=== PATIENT | female | born 1960 | race Caucasian/White ===

== ENCOUNTER 2020-11-29 14:18 | Emergency (ER) | payer OTHER ==
[2020-11-29 14:31] VITALS: BP 137/71; PULSE 68; RESP 18; TEMP 97.7
--- NOTE | 2020-11-29 15:07 | ED ---
Recheck HPI - General Chief Complaint: Recheck/Abnormal Lab/Rx Stated Complaint: Invasive Candidiasis Time Seen by Provider: 11/29/20 14:45 Source: patient, family, RN notes reviewed Mode of arrival: wheelchair Limitations: no limitations - History of Present Illness Initial Comments: This a 60-year-old female presents emergency Department chief complaint of candidiasis issues. Patient states that she had issues like this 6 months ago which was placed on oral medications. 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 Patient's seen at urgent care is advised to be seen by infectious disease she did not call and schedule plain she presented emergency department. Patient does have underlying ALS on chronic submental oxygen. Patient is not a diabetic. She states she has esophageal and oral candidiasis along with some groin skin. Patient offers no complaints - Related Data Home Medications Medication Instructions Recorded Confirmed Atorvastatin Calcium [Lipitor] 10 mg PO DAILY 05/18/20 05/18/20 LORazepam [Ativan] 1 mg SL Q4H PRN 05/18/20 05/18/20 MORPHINE ORAL JUDE CONC 20mg/mL 15 - 20 mg PO DIRECTED PRN 05/18/20 05/18/20 [Roxanol Oral Soln Conc 20MG/ML] Mag Hydrox/Aluminum Hyd/Simeth 5 - 10 ml PO BID PRN 05/18/20 05/18/20 [Mylanta Maximum Strength Liq] Melatonin 5 mg PO HS PRN 05/18/20 05/18/20 Sennosides/Docusate Sodium [Senna 2 tab PO DAILY PRN MDD 4 tabs daily 05/18/20 05/18/20 Plus 8.6-50 mg Tablet] guaiFENesin SYRUP 100MG/5ML 300 - 600 mg PO TID PRN 05/18/20 05/18/20 [Robitussin] Previous Rx's Medication Instructions Recorded Clopidogrel [Plavix] 75 mg PO DAILY #30 tab 11/27/19 Acetaminophen Oral Susp (Peds) 1,000 mg PO Q6HR PRN bottle 05/20/20 [Tylenol Oral Susp For Peds (Grape)] Ascorbic Acid [Vitamin C] 500 mg PO DAILY 30 Days #30 tab 05/20/20 Cholecalciferol [Vitamin D3 (25 1,000 unit PO DAILY 30 Days #30 tab 05/20/20 Mcg = 1000 Iu)] Famotidine [Pepcid] 20 mg PO BID 30 Days #60 tab 05/20/20 Zinc Sulfate [Orazinc] 220 mg PO DAILY 30 Days #30 cap 05/20/20 dexAMETHasone ORAL [Hexadrol] 6 mg PO DAILY 7 Days #7 tab 05/20/20 Fluconazole Oral Susp [Diflucan 200 mg PO DAILY #105 ml 11/29/20 Oral Susp] Nystatin 100,000Unit/gm Cream 1 applic TOPICAL BID #30 gram 11/29/20 [Mycostatin Cream] Allergies Allergy/AdvReac Type Severity Reaction Status Date / Time aspirin Allergy Unknown Verified 11/29/20 14:32 Review of Systems ROS Statement: Those systems with pertinent positive or pertinent negative responses have been documented in the HPI. ROS Other: All systems not noted in ROS Statement are negative. Past Medical History Past Medical History: No Reported History History of Any Multi-Drug Resistant Organisms: None Reported Past Surgical History: Bowel Resection, Section, Hernia Repair, Tubal Ligation Additional Past Surgical History / Comment(s): patient does not speak, uses hands and notes Past Anesthesia/Blood Transfusion Reactions: No Reported Reaction Past Psychological History: No Psychological Hx Reported Smoking Status: Former smoker Past Alcohol Use History: None Reported Past Drug Use History: None Reported General Exam Limitations: no limitations General appearance: alert, in no apparent distress Head exam: Present: atraumatic, normocephalic, normal inspection Eye exam: Present: normal appearance, PERRL, EOMI. Absent: scleral icterus, conjunctival injection, periorbital swelling ENT exam: Present: mucous membranes moist, TM's normal bilaterally, normal external ear exam. Absent: normal oropharynx (Diffuse coating noted on the tongue) Neck exam: Present: normal inspection, full ROM. Absent: tenderness, meningismus, lymphadenopathy Respiratory exam: Present: normal lung sounds bilaterally. Absent: respiratory distress, wheezes, rales, rhonchi, stridor Cardiovascular Exam: Present: regular rate, normal rhythm, normal heart sounds. Absent: systolic murmur, diastolic murmur, rubs, gallop, clicks Skin exam: Present: rash Course Vital Signs 11/29/20 14:26 Temperature 97.7 F Pulse Rate 68 Respiratory 18 Rate Blood Pressure 137/71 O2 Sat by Pulse 96 Oximetry Medical Decision Making - Medical Decision Making Patient was placed on oral suspension Diflucan will follow-up with infectious disease as directed and return for worsening symptoms. Disposition Clinical Impression: Oral pharyngeal candidiasis, Intertrigo Disposition: HOME SELF-CARE Instructions (If sedation given, give patient instructions): Oral Candidiasis (ED) Additional Instructions: Please return to the Emergency Department if symptoms worsen or any other concerns. Prescriptions: Fluconazole Oral Susp [Diflucan Oral Susp] 200 mg PO DAILY #105 ml Nystatin 100,000Unit/gm Cream [Mycostatin Cream] 1 applic TOPICAL BID #30 gram Is patient prescribed a controlled substance at d/c from ED?: No Referrals: Tiffanie Lopez MD [Primary Care Provider] - 1-2 days Teresa Garcia MD [STAFF PHYSICIAN] - 1-2 days Time of Disposition: 15:06
[2020-11-29] MEDS ORDERED: LORazepam 2 MG/ML INJ IV STA (15:21)
[2020-11-29] MEDS ORDERED: SODIUM CHLORIDE 0.9% 1,000 ML IV ONE (15:21)
== END 2020-11-29 16:22 | disposition home or self-care (01) ==
LOC: EC 14:18 → MERGE 14:18 → EC 16:22
DX: B37.0 Candidal stomatitis (principal); L30.4 Erythema intertrigo; Z87.891 Personal history of nicotine dependence
CPT/HCPCS: 96374; 99283